=== PATIENT | female | born 1970 | race Caucasian/White ===

== ENCOUNTER 2020-08-29 10:18 | Outpatient (CLI) | payer MEDICARE, MEDICAID, SELFPAY ==
--- NOTE | 2020-08-29 10:31 | MM_ITS ---
WS: [id number] BILATERAL DIGITAL SCREENING MAMMOGRAPHY WITH CAD CLINICAL INFORMATION: SCREENING HISTORY: Screening mammogram. No current complaints. COMPARISON: None. TECHNIQUE: Bilateral CC and MLO views. FINDINGS: Scattered fibroglandular densities bilaterally. No suspicious focal mass, asymmetry, calcifications, or architectural distortion. No evidence of malignancy. Vascular calcification. MM/[id number] IMPRESSION: BI-RADS: 2-Benign FOLLOW UP: 1 Year Follow-up Recommend return to annual screening mammography.
== END 2020-08-29 10:19 | disposition home or self-care (01) ==
LOC: RADSHAW 10:22
PROVIDERS: PCP Family Medicine; Visit Provider Family Medicine
DX: Z12.31 Encounter for screening mammogram for malignant neoplasm of breast (principal)
CPT/HCPCS: 77067

== ENCOUNTER 2021-09-01 07:48 | Outpatient (CLI) | payer MEDICARE, MEDICAID, SELFPAY ==
--- NOTE | 2021-09-01 07:58 | MM_ITS ---
WS: [id number] BILATERAL SCREENING DIGITAL MAMMOGRAM WITH CAD HISTORY: SCREENING COMPARISON: 08/29/2020, 08/28/2019 Bilateral CC and MLO views submitted. Computer aided detection analyzed. Breast composition: There are scattered areas of fibroglandular density. No suspicious masses, microc alcifications or architectural distortion. Vascular calcification RIGHT breast. MM/[id number] IMPRESSION: BI-RADS: 2-Benign FOLLOW UP: 1 Year Follow-up
== END 2021-09-01 07:49 | disposition home or self-care (01) ==
PROVIDERS: PCP Family Medicine; Visit Provider Family Medicine
DX: Z12.31 Encounter for screening mammogram for malignant neoplasm of breast (principal)
CPT/HCPCS: 77067

== ENCOUNTER → 2022-03-07 08:23 | Outpatient (BNVA) | payer MEDICARE, MEDICAID, SELFPAY | PROVIDERS: PCP Family Medicine; Referring Provider Family Medicine; Visit Provider Nurse Practitioner | DX: G40.209 Localization-related (focal) (partial) symptomatic epilepsy and epileptic syndromes with complex partial seizures, not intractable, without status epilepticus (principal) | CPT/HCPCS: 99204 ==

== ENCOUNTER → 2022-04-12 13:03 | Outpatient (BNVA) | payer MEDICARE, MEDICAID, SELFPAY | PROVIDERS: PCP Family Medicine; Referring Provider Nurse Practitioner; Visit Provider Specialist | DX: G40.909 Epilepsy, unspecified, not intractable, without status epilepticus (principal) | CPT/HCPCS: 95816 ==

== ENCOUNTER → 2022-05-28 14:04 | Outpatient (BNVA) | payer MEDICARE, MEDICAID, SELFPAY | PROVIDERS: PCP Family Medicine; Visit Provider Nurse Practitioner | DX: G40.909 Epilepsy, unspecified, not intractable, without status epilepticus (principal) | CPT/HCPCS: 99213; 99214 ==

== ENCOUNTER → 2022-09-07 08:04 | Outpatient (BNVA) | payer MEDICARE, MEDICAID, SELFPAY | PROVIDERS: PCP Family Medicine; Visit Provider Nurse Practitioner | DX: G40.209 Localization-related (focal) (partial) symptomatic epilepsy and epileptic syndromes with complex partial seizures, not intractable, without status epilepticus (principal) | CPT/HCPCS: 99213 ==

== ENCOUNTER 2022-09-26 14:15 | Outpatient (CLI) | payer MEDICARE, MEDICAID, SELFPAY ==
--- NOTE | 2022-09-26 14:22 | MM_ITS ---
WS: [id number] BILATERAL 3D TOMOSYNTHESIS DIGITAL SCREENING MAMMOGRAPHY WITH CAD CLINICAL INFORMATION: SCREENING HISTORY: Screening mammogram. No current complaints. COMPARISON: September 01, 2021 TECHNIQUE: Bilateral CC and MLO views. FINDINGS: Scattered fibroglandular densities bilaterally. No suspicious focal mass, asymmetry, calcifications, or architectural distortion. No evidence of malignancy. Vascular calcification. A few incidental punc lenz calcifications. MM/[id number] IMPRESSION: BI-RADS: 2-Benign FOLLOW UP: 1 Year Follow-up Recommend return to annual screening mammography.
== END 2022-09-26 14:16 | disposition home or self-care (01) ==
LOC: RAD 14:18
PROVIDERS: PCP Family Medicine; Visit Provider Family Medicine
DX: Z12.31 Encounter for screening mammogram for malignant neoplasm of breast (principal)
CPT/HCPCS: 77063; 77067; 99213

== ENCOUNTER → 2023-08-28 14:00 | Outpatient (BNVA) | payer MEDICARE, MEDICAID, SELFPAY | PROVIDERS: PCP Family Medicine; Visit Provider Psychiatry & Neurology Neurology | DX: G40.219 Localization-related (focal) (partial) symptomatic epilepsy and epileptic syndromes with complex partial seizures, intractable, without status epilepticus (principal); R29.90 Unspecified symptoms and signs involving the nervous system | CPT/HCPCS: 99203 ==

== ENCOUNTER 2023-10-07 12:49 | Outpatient (CLI) | payer MEDICARE, MEDICAID, SELFPAY ==
--- NOTE | 2023-10-07 13:00 | MR_ITS ---
WS: [id number] MRI HEAD WITH CONTRAST TECHNIQUE: Sagittal T1, T2 axial, T2 axial FLAIR, axial susceptibility weighted imaging, axial diffus ion weighted images, and coronal T2 images were obtained. Pre and post-T1 axial and post T1 coronal i mages. ADC and FSPGR images. CLINICAL INFORMATION: G40.909 - Epilepsy, unspecified, not intractable, without... COMPARISON: None. FINDINGS: No evidence of restricted diffusion to suggest acute ischemia. Ventricular system and basilar cistern s are patent. No suspicious intracranial signal normalities. Normal veloz-white differentiation. Renee l posterior fossa. Normal vascular flow voids at the skull base. No extra-axial fluid collections. No evidence of mass or mass effect. Mild mucosal thickening in the paranasal sinuses. No hemosiderin on susceptibly weighted images. Normal optic chiasm and pituitary infundibulum. Tempor al lobes and hippocampal formations are normal in appearance. Paranasal sinuses and mastoid air cells are well aerated. No abnormal gadolinium enhancement. Normal dural venous sinuses. IMPRESSION: 1. No evidence of restricted diffusion to suggest acute ischemia. 2. No suspicious intracranial signal abnormalities. Normal veloz-white differentiation. 3. Temporal lobes and hippocampal formations are normal in appearance. No signal abnormalities in th e mesial temporal lobes. 4. No abnormal gadolinium enhancement. 5. No other suspicious findings.
== END 2023-10-07 12:50 | disposition home or self-care (01) ==
LOC: RAD 12:49
PROVIDERS: PCP Family Medicine; Visit Provider Psychiatry & Neurology Neurology
DX: G40.909 Epilepsy, unspecified, not intractable, without status epilepticus (principal)
CPT/HCPCS: 70553; A9577

== ENCOUNTER → 2023-11-27 13:30 | Outpatient (BNVA) | payer MEDICARE, MEDICAID, SELFPAY | PROVIDERS: PCP Family Medicine; Visit Provider Psychiatry & Neurology Neurology | DX: G40.219 Localization-related (focal) (partial) symptomatic epilepsy and epileptic syndromes with complex partial seizures, intractable, without status epilepticus (principal) | CPT/HCPCS: 99212 ==

== ENCOUNTER → 2024-02-11 15:26 | Outpatient (BNVA) | payer MEDICARE, MEDICAID, SELFPAY | PROVIDERS: PCP Family Medicine; Visit Provider Psychiatry & Neurology Neurology | DX: G40.219 Localization-related (focal) (partial) symptomatic epilepsy and epileptic syndromes with complex partial seizures, intractable, without status epilepticus (principal) | CPT/HCPCS: 99212 ==

== ENCOUNTER 2024-02-18 08:34 | Outpatient (CLI) | payer MEDICARE, MEDICAID, SELFPAY ==
[2024-02-18 09:31] LABS: Basophils % 0.5 %; Eosinophils # 0.3 10^3/uL (0.0-0.8); Eosinophils % 4.1 %; Hematocrit 40.8 % (36-47); Lymphocytes # 2.4 10^3/uL (0.8-4.8); Lymphocytes % 38.9 %; Mean Corpuscular HGB Conc 33.1 g/dL (30-55); Mean Corpuscular Hemoglobin 29.6 pg (27-33); Mean Corpuscular Volume 89.5 fl (85-98); Mean Platelet Volume 9.3 fL (7.4-10.4); Monocytes # 0.5 10^3/uL (0.2-0.9); Monocytes % 8.1 %; Neutrophils # 2.98 10^3/uL (1.8-7.7); Neutrophils % 48.2 %; Nucleated Red Blood Cells % 0 %; Platelet Count 261 10^3/cmm (157-399); Red Blood Count 4.56 10^6/uL (3.85-5.65); Red Cell Distribution Width 13.5 % (12.1-15.1); White Blood Count 6.17 10^3/uL (3.29-11.43)
[2024-02-18 09:48] LABS: Valproic Acid Level 69.9 ug/mL (50-100)
[2024-02-18 09:50] LABS: Alanine Aminotransferase 19 U/L (0-33); Albumin Level 4.1 g/dL (3.5-5.2); Alkaline Phosphatase 62 U/L (35-105); Anion Gap 14.4 (5-19); Aspartate Amino Transferase 19 U/L (0-32); Blood Urea Nitrogen 11 mg/dL (6-20); Calcium 9.6 mg/dL (8.5-10.5); Carbon Dioxide 26 mmol/L (22-29); Chloride 102 mmol/L (98-107); Globulin 2.8 g/dL (1.3-4.6); Glucose 111 mg/dL (65-115); Osmolality Calculated 286 mOsm/kg (285-295); Potassium 4.4 mmol/L (3.5-5.1); Sodium 138 mmol/L (136-145); Total Bilirubin 0.3 mg/dL (0.15-1.2); Total Protein 6.9 g/dL (6.6-8.7)
[2024-02-21 13:18] LABS: Levetiracetam Immunoassy 28.2 mcg/mL (6.0-46.0)
[2024-02-22 12:48] LABS: Lamotrigine (Lamictal) Level 14.4 mcg/mL (2.5-15.0)
== END 2024-02-18 08:35 | disposition home or self-care (01) ==
LOC: LAB 08:35
PROVIDERS: PCP Family Medicine; Visit Provider Psychiatry & Neurology Neurology
DX: G40.909 Epilepsy, unspecified, not intractable, without status epilepticus (principal)
CPT/HCPCS: 36415; 80053; 80164; 80175; 80177; 85025

== ENCOUNTER → 2024-02-21 12:06 | Outpatient (BNVA) | payer MEDICARE, MEDICAID, SELFPAY | PROVIDERS: PCP Family Medicine; Visit Provider Psychiatry & Neurology Neurology | DX: G40.219 Localization-related (focal) (partial) symptomatic epilepsy and epileptic syndromes with complex partial seizures, intractable, without status epilepticus (principal); G40.209 Localization-related (focal) (partial) symptomatic epilepsy and epileptic syndromes with complex partial seizures, not intractable, without status epilepticus; G40.909 Epilepsy, unspecified, not intractable, without status epilepticus | CPT/HCPCS: 95816 ==

== ENCOUNTER → 2024-05-25 13:30 | Outpatient (BNVA) | payer MEDICARE, MEDICAID, SELFPAY | PROVIDERS: PCP Family Medicine; Visit Provider Psychiatry & Neurology Neurology | DX: G40.219 Localization-related (focal) (partial) symptomatic epilepsy and epileptic syndromes with complex partial seizures, intractable, without status epilepticus (principal) | CPT/HCPCS: 99212 ==

== ENCOUNTER 2024-09-03 09:39 | Outpatient (CLI) | payer MEDICARE, MEDICAID, SELFPAY ==
--- NOTE | 2024-09-03 09:42 | MM_ITS ---
WS: [id number] BILATERAL SCREENING DIGITAL TOMOSYNTHESIS MAMMOGRAM WITH CAD HISTORY: SCREENING COMPARISON: 09/26/2022, 09/01/2021 Bilateral CC and MLO views with tomosynthesis and synthetic mammography submitted. Computer aided det ection analyzed. Breast composition: There are scattered areas of fibroglandular density. No suspicious masses, microc alcifications or architectural distortion. Scattered asymmetries and vascular calcifications are stab le. MM/MM scr tomosynthesis [id number] IMPRESSION: BI-RADS: 2 - Benign. FOLLOW UP: 1 Year Follow-up
== END 2024-09-03 09:40 | disposition home or self-care (01) ==
LOC: RAD 09:41
PROVIDERS: PCP Family Medicine; Visit Provider Family Medicine
DX: Z12.31 Encounter for screening mammogram for malignant neoplasm of breast (principal); R92.323 Mammographic fibroglandular density, bilateral breasts; N64.89 Other specified disorders of breast; R92.1 Mammographic calcification found on diagnostic imaging of breast
CPT/HCPCS: 77063; 77067

== ENCOUNTER 2025-01-18 20:16 | Emergency (ER) | payer MEDICARE, MEDICAID, SELFPAY ==
--- NOTE | 2025-01-18 20:17 | XRR_ITS ---
PROCEDURE INFORMATION: Exam: XR Chest Exam date and time: 01/18/2025 8:37 PM Age: 54 years old Clinical indication: Shortness of breath; Additional info: SOB TECHNIQUE: Imaging protocol: Radiologic exam of the chest. Views: 1 view. COMPARISON: No relevant prior studies available. FINDINGS: Lungs: Unremarkable. No consolidation or mass. Pleural spaces: Unremarkable. No pleural effusion. No pneumothorax. Heart/Mediastinum: Unremarkable. No cardiomegaly. Bones/joints: Unremarkable. XR/XR chest 1V portable [id number] IMPRESSION: No acute findings.
--- NOTE | 2025-01-18 20:18 | ECG_ITS ---
[facility] Test Date: 2025-01-18 Pat Name: Angelic Newsome Department: Room: Gender: Female Pediatric Physician: : 1970 Requested By: Ulysses Padron Order Number: [id number] Reading MD: Measurements Intervals [place] Rate: 102 P: 42 MD: 146 QRS: -2 QRSD: 85 T: -15 QT: 304 QTc: 396 Interpretive Statements SINUS TACHYCARDIA POSSIBLE LEFT ATRIAL ENLARGEMENT [-0.1mV P-WAVE IN V1/V2] POSSIBLE LEFT VENTRICULAR HYPERTROPHY [VOLTAGE CRITERIA PLUS LAE OR QRS WIDENING] [email or web address] [id number]
[2025-01-18 20:23] VITALS: BP 112/69; PULSE 104; TEMP 36.9; O2SAT 97
[2025-01-18 21:06] LABS: Basophils # 0.1 10^3/uL (0.0-0.1); Basophils % 0.4 %; Eosinophils % 0.1 %; Hematocrit 40.4 % (36-47); Lymphocytes # 2.5 10^3/uL (0.8-4.8); Lymphocytes % 17.8 %; Mean Corpuscular HGB Conc 32.9 g/dL (30-55); Mean Corpuscular Hemoglobin 29.7 pg (27-33); Mean Corpuscular Volume 90.2 fl (85-98); Mean Platelet Volume 9.1 fL (7.4-10.4); Monocytes # 0.8 10^3/uL (0.2-0.9); Monocytes % 5.7 %; Neutrophils # 10.77 10^3/uL (1.8-7.7); Neutrophils % 75.6 %; Nucleated Red Blood Cells % 0 %; Platelet Count 269 10^3/cmm (157-399); Red Blood Count 4.48 10^6/uL (3.85-5.65); White Blood Count 14.25 10^3/uL (3.29-11.43)
[2025-01-18 21:40] LABS: Alanine Aminotransferase 11 U/L (0-33); Alkaline Phosphatase 64 U/L (35-105); Anion Gap 14.9 (5-19); Aspartate Amino Transferase 11 U/L (0-32); Blood Urea Nitrogen 11 mg/dL (6-20); Calcium 9.7 mg/dL (8.5-10.5); Carbon Dioxide 28 mmol/L (22-29); Chloride 99 mmol/L (98-107); Creatinine Clr Calc Pharmacy 89.2184; Globulin 3.3 g/dL (1.3-4.6); Glomerular Filtration Rate 65.5 mL/min (90-130); Glucose 123 mg/dL (65-115); NT Pro B Type Natriuretic Pept 452 pg/mL (0-125); Osmolality Calculated 285 mOsm/kg (285-295); Potassium 4.9 mmol/L (3.5-5.1); Sodium 137 mmol/L (136-145); Total Bilirubin 0.3 mg/dL (0.15-1.2); Total Protein 7.3 g/dL (6.6-8.7)
[2025-01-19 00:02] LABS: Influenza A NEGATIVE (Negative); Influenza B NEGATIVE (Negative); Respiratory Syncytial Virus Ce NEGATIVE (Negative); SARS-CoV-2 PCR NEGATIVE (Negative)
--- NOTE | 2025-01-19 00:14 | W.ED.URI ---
HPI - URI/Sore Throat General: Chief Complaint: Upper Respiratory Infection Stated Complaint: O2 Low\Pulse High Time Seen by Provider: 01/18/25 22:55 Source: patient Mode of arrival: ambulatory Limitations: no limitations History of Present Illness: Patient is a 54-year-old female with a past medical history of seizure disorder, hypothyroid, anxiety, and seasonal allergies who presents to the emergency department complaining of headache for the past day. Also states she is having some generalized abdominal pain, cough, and congestion. She lives in a longterm states that multiple people have been sick around her recently. She has been taking Tylenol as well as medications for her allergies, states she has not gotten much relief. She is not reporting any chest pain or shortness of breath. She is not reporting that her cough is productive. No fever, nausea/vomiting/diarrhea, or any other symptoms reported at this time. Vitals within normal limits. MD elicited complaint: cough and nasal congestion Onset (ago): day(s) Consistency: constant Severity: mild Able to tolerate fluids by mouth: Yes Associated symptoms: Reports abdominal pain, headache(s) and nasal congestion; Deny chills, chest pain, diarrhea, ear or mastoid pain, fever(s), nausea or vomiting Related Data Home Medications ?Medication ?Instructions ?Recorded ?Confirmed atorvastatin 10 mg tablet 10 mg PO DAILY 01/26/22 05/25/24 bismuth subsalicylate 262 mg/15 mL 524 mg PO Q30M PRN 01/26/22 05/25/24 oral suspension (Pepto-Bismol) calcium carbonate (Tums) 200 mg PO BID PRN 01/26/22 05/25/24 docusate sodium 100 mg capsule 100 mg PO BID 01/26/22 05/25/24 (Colace) duloxetine 60 mg capsule,delayed 60 mg PO BID 01/26/22 05/25/24 release fluticasone propionate 50 1 spray intranasal DAILY 01/26/22 05/25/24 mcg/actuation nasal spray,suspension (Allergy Relief (fluticasone)) hydroxyzine HCl 25 mg tablet 25 mg PO BID PRN 01/26/22 05/25/24 levothyroxine 75 mcg capsule 75 mcg PO DAILY 01/26/22 05/25/24 levothyroxine 88 mcg capsule 88 mcg PO DAILY 01/26/22 05/25/24 lorazepam 1 mg tablet 1 mg PO DAILY PRN 01/26/22 05/25/24 meclizine 25 mg tablet 25 mg PO DAILY PRN 01/26/22 05/25/24 metformin 500 mg tablet 500 mg PO DAILY 01/26/22 05/25/24 montelukast 10 mg tablet 10 mg PO DAILY 01/26/22 05/25/24 ondansetron 4 mg disintegrating 4 mg PO Q8H 01/26/22 05/25/24 tablet pantoprazole 40 mg tablet,delayed 40 mg PO DAILY 01/26/22 05/25/24 release (Protonix) prenat.vits,sanjeev,vkm-qook-xbdku 1 tab PO DAILY 01/26/22 05/25/24 sennosides 8.6 mg tablet (senna) 8.6 mg PO DAILY 01/26/22 05/25/24 sodium chloride 0.65 % nasal spray 1 spray intranasal BID PRN 01/26/22 05/25/24 aerosol (Culloden Saline) acetaminophen 500 mg tablet 500 mg PO Q6H PRN 03/07/22 05/25/24 (Tylenol Extra Strength) guaifenesin 600 mg tablet, 600 mg PO BID PRN 02/14/23 05/25/24 extended release 12 hr (Mucinex) propranolol 20 mg tablet 20 mg PO BID 02/14/23 05/25/24 Previous Rx's ?Medication ?Instructions ?Recorded estradiol 1 mg tablet See Rx Instructions .Route 02/19/24 .COMPLEX #135 tabs lamotrigine 150 mg tablet See Rx Instructions .Route 08/18/24 .COMPLEX #60 tabs levetiracetam 1,000 mg tablet See Rx Instructions .Route 09/28/24 .COMPLEX #90 tabs divalproex 500 mg tablet,extended See Rx Instructions .Route 11/24/24 release 24 hr .COMPLEX #90 tabs Allergies Allergy/AdvReac Type Severity Reaction Status Date / Time latex Allergy skin Verified 01/18/25 20:37 irritation Penicillins Allergy anaphylaxis Verified 01/18/25 20:37 Review of Systems General: Reports: 10 or more systems reviewed and unremarkable except in HPI and below Const: Denies: fever(s), chills or fatigue Eyes: Denies: change in vision ENMT: Reports: nasal congestion; Denies: throat pain, ear or mastoid pain or nasal discharge Card: Denies: chest pain, palpitations, swelling of feet/ankles or lightheadedness Resp: Reports: non-productive cough; Denies: dyspnea, productive cough or wheezing GI: Reports: abdominal pain; Denies: nausea, vomiting, diarrhea or constipation : Denies: flank pain, difficulty voiding, dysuria or urinary frequency Musc: Denies: neck pain, back pain or joint pain Skin/Breast: Denies: rash Neuro: Reports: headache(s); Denies: numbness in extremities or weakness in extremities PFSH ED PFSH: Medical History Complex partial epilepsy Borderline diabetes Constipation Depression Hypercholesteremia Chronic GERD Allergies Anxiety Seizure disorder on medication and managed by Dr. Mondragon. Has not seen a neurologist in several years. Last seizure 2020. Surgical menopause Hypothyroid No pertinent past medical history neghx:dm,thyroid,dvt/pe PCP: Dr. Mondragon Hypertension not currently on any medications- stopped her medication mid 2020. Surgical History Hx of tonsillectomy as a child Hx laparoscopic cholecystectomy Laparoscopic procedure in her mid 30s Hx of hysterectomy with oophorectomy (~06/24/12) Total abdominal hysterectomy, bilateral salpingo-oophorectomy performed on 06/24/[address] Hossein Santos at [facility] [place] for menorrhagia, dysmenorrhea and endometriosis. Bilateral ovaries removed secondary to the endometriosis. Family History Mother Heart disease Hypercholesteremia Hypertension Father Heart disease Hypercholesteremia Hypertension Sister Hypertension Grandfather Stroke Paternal Denies family history of Colon cancer Ovarian cancer Diabetes Breast cancer Uterine cancer Thyroid disease Social History Smoking and tobacco/nicotine status: never used tobacco/nicotine Physical Exam Const: COMMON NORMALS: no acute distress and healthy appearing GENERAL APPEARANCE: cooperative, comfortable and well developed HENMT: COMMON NORMALS: normocephalic, atraumatic, hearing grossly normal bilaterally, external ears normal, EAC's normal, TM's normal bilaterally, Normal external nose present and Normal nasal mucous membranes and turbinates present HEAD & SCALP: normal to inspection, normocephalic and atraumatic FACE & SINUS: normal facial exam and sinuses nontender NOSE: Normal external nose present, Normal nares present, No nasal polyps present and Normal nasal mucous membranes and turbinates present EXTERNAL EAR: Yes external ears normal EXTERNAL AUDITORY CANAL: EAC's normal TYMPANIC MEMBRANE: TM's normal bilaterally MOUTH: Normal oral and palatal mucosa present THROAT: posterior oropharynx normal and tonsils normal Eye: COMMON NORMALS: EOMs intact bilaterally, conjunctivae normal and normal visual fragoso by confrontation GENERAL EYE: appearance normal, both eyes and all related structures CONJUNCTIVA: Yes conjunctivae normal Neck/C-Spine: COMMON NORMALS: full ROM, no lymphadenopathy, supple and no meningeal signs GENERAL: Yes normal visual inspection Chest: COMMONS NORMALS: normal inspection of the chest Resp: COMMON NORMALS: normal respiratory effort and clear to auscultation bilaterally EFFORT & INSPECTION: Yes able to speak in complete sentences AUSCULTATION: clear to auscultation bilaterally Cardio: COMMON NORMALS: regular rate, regular rhythm, S1 normal heart sound present and S2 normal heart sound present RATE: regular rate RHYTHM: regular rhythm HEART SOUNDS: S1 normal heart sound present, S2 normal heart sound present, no gallops, no murmurs and no rubs GI: COMMON NORMALS: Soft to palpation and No hepatosplenomegaly present INSPECTION: Yes normal to inspection PALPATION: Yes Soft to palpation and Yes No hepatosplenomegaly present Extremity: COMMON NORMALS: normal to inspection, full ROM and capillary refill normal Neuro: MENINGEAL SIGNS: Yes no meningeal signs Skin: COMMON NORMALS: no rashes or lesions noted GENERAL SKIN EXAM: no rashes or lesions noted Course Vital Signs: Vital signs: Vital Signs Temperature 98.4 F 01/18/25 20:23 Pulse Rate 104 H 01/18/25 20:23 Blood Pressure 112/69 01/18/25 20:23 Pulse Oximetry 97 01/18/25 20:23 Oxygen Delivery Me thod Room Air 01/18/25 20:23 MDM - URI/Sore Throat Medical Decision Making Patient presented with upper respiratory symptoms, notable contact exposure to sick patrons at longterm. Physical exam was unremarkable. Her vitals have been within normal limits. Lab work was unremarkable, normal chest x-ray. Swab for COVID flu and RSV was negative. I do suspect either viral upper respiratory infection or seasonal allergies will have her begin treating conservatively at home as symptoms just began yesterday and she did not report taking anything other than Tylenol. Patient and longterm member comfortable with this plan and they verbalized understanding to return precautions. Lab Data 01/18/25 21:01 01/18/25 21:01 Radiology Impressions Chest X-Ray 01/18/25 20:17 IMPRESSION: No acute findings. Laboratory Results WBC 14.25 10^3/uL (3.29-11.43) H 01/18/25 21:01 RBC 4.48 10^6/uL (3.85-5.65) 01/18/25 21:01 Hgb 13.30 g/dL (11.27-16.99) 01/18/25 21: Hct 40.4 % (36-47) 01/18/25 21: MCV 90.2 fl (85-98) 01/18/25 21: MCH 29.7 pg (27-33) 01/18/25 21:01 MCHC 32.9 g/dL (30-55) 01/18/25 21:01 RDW 14.0 % (12.1-15.1) 01/18/25 21: Plt Count 269 10^3/cmm (157-399) 01/18/25 21:01 MPV 9.1 fL (7.4-10.4) 01/18/25 21:01 Neut % (Auto) 75.6 % 01/18/25 21: Lymph % (Auto) 17.8 % 01/18/25 21:01 [place] % (Auto) 5.7 % 01/18/25 21:01 Eos % (Auto) 0.1 % 01/18/25 21:01 Baso % (Auto) 0.4 % 01/18/25 21:01 Neut # (Auto) 10.77 10^3/uL (1.8-7.7) H 01/18/25 21:01 Lymph # (Auto) 2.5 10^3/uL (0.8-4.8) 01/18/25 21:01 [place] # (Auto) 0.8 10^3/uL (0.2-0.9) 01/18/25 21:01 Eos # (Auto) 0.0 10^3/uL (0.0-0.8) 01/18/25 21:01 Baso # (Auto) 0.1 10^3/uL (0.0-0.1) 01/18/25 21:01 Nucleated RBC % (auto) 0 % 01/18/25 21:01 Nucleated RBCs # 0.0 /100WBC 01/18/25 21:01 Sodium 137 mmol/L (136-145) 01/18/25 21:01 Potassium 4.9 mmol/L (3.5-5.1) 01/18/25 21:01 Chloride 99 mmol/L (98-107) 01/18/25 21:01 Carbon Dioxide 28 mmol/L (22-29) 01/18/25 21: Anion Gap 14.9 (5-19) 01/18/25 21:01 BUN 11 mg/dL (6-20) 01/18/25 21:01 Creatinine 0.9 mg/dL (0.5-0.9) 01/18/25 21:01 GFR Calculation 65.5 mL/min (90-130) L 01/18/25 21:01 Glucose 123 mg/dL (65-115) H 01/18/25 21:01 Calculated Osmolality 285 mOsm/kg (285-295) 01/18/25 21:01 Calcium 9.7 mg/dL (8.5-10.5) 01/18/25 21:01 Total Bilirubin 0.3 mg/dL (0.15-1.2) 01/18/25 21:01 AST 11 U/L (0-32) 01/18/25 21:01 ALT 11 U/L (0-33) 01/18/25 21:01 Alkaline Phosphatase 64 U/L (35-105) 01/18/25 21:01 NT-Pro-B Natriuret Pep 452 pg/mL (0-125) H 01/18/25 21:01 Total Protein 7.3 g/dL (6.6-8.7) 01/18/25 21:01 Albumin 4.0 g/dL (3.5-5.2) 01/18/25 21: Globulin 3.3 g/dL (1.3-4.6) 01/18/25 21:01 Influenza A (PCR) Negative (Negative) 01/18/25 23:16 Influenza Type B (PCR) Negative (Negative) 01/18/25 23:16 RSV (PCR) Negative (Negative) 01/18/25 23:16 SARS-CoV-2 (PCR) Negative (Negative) 01/18/25 23:16 All radiology interpretation(s) finalized by discharge Discharge Plan Discharge Patient Disposition: Home Clinical Impression: Upper respiratory infection Condition: Stable Prescriptions: No Action pantoprazole [Protonix] 40 mg tablet,delayed release (DR/EC) 40 mg PO DAILY metformin 500 mg tablet 500 mg PO DAILY prenat.vits,sanjeev,ywf-stjo-gkpde Tablet 1 tab PO DAILY fluticasone propionate [Allergy Relief (fluticasone)] 50 mcg/actuation spray,suspension 1 spray intranasal DAILY Rx Instructions: administer into each nostril duloxetine 60 mg capsule,delayed release(DR/EC) 60 mg PO BID levothyroxine 75 mcg capsule 75 mcg PO DAILY levothyroxine 88 mcg capsule 88 mcg PO DAILY sennosides [senna] 8.6 mg tablet 8.6 mg PO DAILY atorvastatin 10 mg tablet 10 mg PO DAILY docusate sodium [Colace] 100 mg capsule 100 mg PO BID calcium carbonate [Tums] 200 mg calcium (500 mg) tablet,chewable 200 mg PO BID PRN bismuth subsalicylate [Pepto-Bismol] 262 mg/15 mL suspension 524 mg PO Q30M PRN Rx Instructions: do not exceed 8 doses in a 24 hour period montelukast 10 mg tablet 10 mg PO DAILY meclizine 25 mg tablet 25 mg PO DAILY PRN hydroxyzine HCl 25 mg tablet 25 mg PO BID PRN lorazepam 1 mg tablet 1 mg PO DAILY PRN sodium chloride [Culloden Saline] 0.65 % aerosol,spray 1 spray intranasal BID PRN ondansetron 4 mg tablet,disintegrating 4 mg PO Q8H propranolol 20 mg tablet 20 mg PO BID guaifenesin [Mucinex] 600 mg tablet extended release 12hr 600 mg PO BID PRN estradiol 1 mg tablet See Rx Instructions .ROUTE .COMPLEX Qty: 135 3RF Dose Instruction: TAKE 1 AND 1/2 TABLETS BY MOUTH EVERY DAY Rx Instructions: TAKE 1 AND 1/2 TABLETS BY MOUTH EVERY DAY acetaminophen [Tylenol Extra Strength] 500 mg tablet 500 mg PO Q6H PRN lamotrigine 150 mg tablet See Rx Instructions .ROUTE .COMPLEX Qty: 60 6RF Dose Instruction: TAKE ONE TABLET BY MOUTH TWICE DAILY Rx Instructions: TAKE ONE TABLET BY MOUTH TWICE DAILY levetiracetam 1,000 mg tablet See Rx Instructions .ROUTE .COMPLEX Qty: 90 3RF Dose Instruction: TAKE ONE AND ONE HALF TABLETS BY MOUTH TWICE DAILY Rx Instructions: TAKE ONE AND ONE HALF TABLETS BY MOUTH TWICE DAILY divalproex 500 mg tablet extended release 24 hr See Rx Instructions .ROUTE .COMPLEX Qty: 90 1RF Dose Instruction: TAKE ONE TABLET BY MOUTH THREE TIMES DAILY Rx Instructions: TAKE ONE TABLET BY MOUTH THREE TIMES DAILY Discharge Orders: Discharge ED (Routine); Ordered 01/19/25 Ordered By: Chad Lin Referrals: Javon Mondragon MD [Primary Care Provider] - Patient Instructions: Upper Respiratory Infection (ED) Activity Restrictions/Additional Instructions: [id number] medications as we discussed. Drink plenty of fluids. Follow-up with primary care as needed. Return with any new or worsening. Print Language: Kazakh Coding Level of Care Code ED Music Industry Intern for Phu Graham
[2025-01-19 00:21] VITALS: BP 109/69; PULSE 95; O2SAT 98
== END 2025-01-19 00:22 | disposition home or self-care (01) ==
PROVIDERS: Emergency Medicine; Emergency Provider Physician Assistant; PCP Family Medicine
DX: J06.9 Acute upper respiratory infection, unspecified (principal); Z11.52 Encounter for screening for COVID-19; I10 Essential (primary) hypertension
CPT/HCPCS: 36415; 71045; 80053; 83880; 85025; 87637; 93005; 99285

== ENCOUNTER 2025-03-12 21:37 | Emergency (ER) | payer MEDICARE, MEDICAID, SELFPAY ==
[2025-03-12 21:39] VITALS: BP 135/75; PULSE 101; RESP 16; TEMP 37.1; O2SAT 98; BMI 30.9
--- NOTE | 2025-03-12 21:46 | PC.NURSE ---
Per patient, guardian is mother Kinjal Shah. Patient's sister and preferred contact is Buck Garcia, to be reached at [phone]
--- NOTE | 2025-03-12 22:03 | CTR_ITS ---
PROCEDURE INFORMATION: Exam: CT Head Without Contrast Exam date and time: 03/12/2025 10:26 PM Age: 54 years old Clinical indication: EMS arrival for seizure. C/O [place]. History of epilepsy. ; Additional info: Seizure, status epilepticus, headache TECHNIQUE: Imaging protocol: Computed tomography of the head without contrast. Radiation optimization: All CT scans at this facility use at least one of these dose optimization techniques: automated exposure control; mA and/or kV adjustment per patient size (includes targeted exams where dose is matched to clinical indication); or iterative reconstruction. COMPARISON: MR head wo/w con [id number] 10/07/2023 1:31 PM RADIATION DOSE METRICS: Total DLP (mGy-cm): 1075.18 FINDINGS: Brain: No focal hemorrhage or midline shift is identified. Cerebral ventricles: No ventriculomegaly or evidence of acute hydrocephalus. Paranasal sinuses: The partially assessed sinuses are grossly clear. Mastoid air cells: Visualized mastoid air cells are well aerated. Bones: Unremarkable. No acute fracture. Hyperostosis frontalis internus. Soft tissues: Unremarkable. CT/CT head wo con* [id number] IMPRESSION: No acute intracranial abnormality.
[2025-03-12 22:14] LABS: Basophils % 0.4 %; Eosinophils % 0.3 %; Lymphocytes # 2.8 10^3/uL (0.8-4.8); Lymphocytes % 41.2 %; Mean Corpuscular HGB Conc 31.5 g/dL (30-55); Mean Platelet Volume 9.4 fL (7.4-10.4); Monocytes # 0.7 10^3/uL (0.2-0.9); Neutrophils # 3.22 10^3/uL (1.8-7.7); Neutrophils % 47.8 %; Nucleated Red Blood Cells % 0 %; Platelet Count 254 10^3/cmm (157-399); Red Blood Count 4.24 10^6/uL (3.85-5.65); White Blood Count 6.73 10^3/uL (3.29-11.43)
[2025-03-12 22:35] LABS: Valproic Acid Level 46.7 ug/mL (50-100)
[2025-03-12 22:39] LABS: Alanine Aminotransferase 14 U/L (0-33); Alkaline Phosphatase 59 U/L (35-105); Anion Gap 13.2 (5-19); Aspartate Amino Transferase 12 U/L (0-32); Blood Urea Nitrogen 9 mg/dL (6-20); Calcium 8.9 mg/dL (8.5-10.5); Carbon Dioxide 29 mmol/L (22-29); Chloride 101 mmol/L (98-107); Globulin 2.2 g/dL (1.3-4.6); Glomerular Filtration Rate 104.6 mL/min (90-130); Glucose 118 mg/dL (65-115); Osmolality Calculated 288 mOsm/kg (285-295); Potassium 4.2 mmol/L (3.5-5.1); Sodium 139 mmol/L (136-145); Total Bilirubin 0.2 mg/dL (0.15-1.2); Total Protein 6.2 g/dL (6.6-8.7)
--- NOTE | 2025-03-12 23:11 | W.ED.SEIZURE ---
HPI - Seizure General: Chief Complaint: Seizure Stated Complaint: SEIZURE Time Seen by Provider: 03/12/25 21:46 Source: patient Mode of arrival: EMS Limitations: no limitations History of Present Illness: HPI Narrative: Patient is a 54-year-old female with past medical history of complex partial epilepsy and further seizure disorder who presents by ambulance for reported absence seizure earlier today. States she has a history of petit mall seizures and had 1 that lasted 5 minutes per lamp [facility] staff where she is from. She states that she was told to come to the ED for evaluation by her neurologist if she ever has seizures, and she is set to see neurologist in March. She does not report any fevers or other symptoms of illness. Reporting a minor headache at this time, vitals unremarkable and there is no focal neurological deficit appreciated at this time. Medications appears that she is on Depakote and Keppra. Also lorazepam. MD complaint: possible seizure Onset (ago): hour(s) Description of Episode: other (Petit mal) Duration of episode: 5 -: minutes(s) Witnessed: Yes - by Other Seizure History: Yes Place: [facility] Associated symptoms: Deny chest pain, chills or fever(s) Related Data Home Medications ?Medication ?Instructions ?Recorded ?Confirmed atorvastatin 10 mg tablet 10 mg PO DAILY 01/26/22 02/23/25 bismuth subsalicylate 262 mg/15 mL 524 mg PO Q30M PRN 01/26/22 02/23/25 oral suspension (Pepto-Bismol) calcium carbonate (Tums) 200 mg PO BID PRN 01/26/22 02/23/25 docusate sodium 100 mg capsule 100 mg PO BID 01/26/22 02/23/25 (Colace) duloxetine 60 mg capsule,delayed 60 mg PO BID 01/26/22 02/23/25 release fluticasone propionate 50 1 spray intranasal DAILY 01/26/22 02/23/25 mcg/actuation nasal spray,suspension (Allergy Relief (fluticasone)) hydroxyzine HCl 25 mg tablet 25 mg PO BID PRN 01/26/22 02/23/25 levothyroxine 75 mcg capsule 75 mcg PO DAILY 01/26/22 02/23/25 levothyroxine 88 mcg capsule 88 mcg PO DAILY 01/26/22 02/23/25 lorazepam 1 mg tablet 1 mg PO DAILY PRN 01/26/22 02/23/25 meclizine 25 mg tablet 25 mg PO DAILY PRN 01/26/22 02/23/25 metformin 500 mg tablet 500 mg PO DAILY 01/26/22 02/23/25 montelukast 10 mg tablet 10 mg PO DAILY 01/26/22 02/23/25 ondansetron 4 mg disintegrating 4 mg PO Q8H 01/26/22 02/23/25 tablet pantoprazole 40 mg tablet,delayed 40 mg PO DAILY 01/26/22 02/23/25 release (Protonix) prenat.vits,sanjeev,yxh-scjw-ttgfz 1 tab PO DAILY 01/26/22 02/23/25 sennosides 8.6 mg tablet (senna) 8.6 mg PO DAILY 01/26/22 02/23/25 sodium chloride 0.65 % nasal spray 1 spray intranasal BID PRN 01/26/22 02/23/25 aerosol (Lyons Saline) acetaminophen 500 mg tablet 500 mg PO Q6H PRN 03/07/22 02/23/25 (Tylenol Extra Strength) guaifenesin 600 mg tablet, 600 mg PO BID PRN 02/14/23 02/23/25 extended release 12 hr (Mucinex) propranolol 20 mg tablet 20 mg PO BID 02/14/23 02/23/25 Previous Rx's ?Medication ?Instructions ?Recorded lamotrigine 150 mg tablet See Rx Instructions .Route 08/18/24 .COMPLEX #60 tabs levetiracetam 1,000 mg tablet See Rx Instructions .Route 01/27/25 .COMPLEX #90 tabs divalproex 500 mg tablet,extended 500 mg PO TID #90 tabs 02/04/25 release 24 hr estradiol 0.01% (0.1 mg/gram) 1 g vaginal .twice weekly #42.5 02/23/25 vaginal cream grams estradiol 1 mg tablet See Rx Instructions .Route 02/23/25 .COMPLEX #135 tabs cefdinir 300 mg capsule 300 mg PO BID 10 days #20 caps 03/13/25 Allergies Allergy/AdvReac Type Severity Reaction Status Date / Time latex Allergy skin Verified 02/23/25 15:25 irritation Penicillins Allergy anaphylaxis Verified 02/23/25 15:25 Review of Systems General: Reports: 10 or more systems reviewed and unremarkable except in HPI and below Const: Denies: fever(s), chills or fatigue Eyes: Denies: change in vision ENMT: Denies: throat pain, ear or mastoid pain or nasal discharge Card: Denies: chest pain, palpitations, swelling of feet/ankles or lightheadedness Resp: Denies: dyspnea, productive cough or wheezing GI: Denies: abdominal pain, nausea, vomiting, diarrhea or constipation : Denies: flank pain, difficulty voiding, dysuria or urinary frequency Musc: Denies: neck pain, back pain or joint pain Skin/Breast: Denies: rash Neuro: Reports: headache(s) and seizure-like activity; Denies: numbness in extremities, weakness in extremities, dizziness or Slurred speech present PFSH ED PFSH: Medical History Complex partial epilepsy Borderline diabetes Constipation Depression Hypercholesteremia Chronic GERD Allergies Anxiety Seizure disorder on medication and managed by Dr. Mondragon. Has not seen a neurologist in several years. Last seizure 2020. Surgical menopause Hypothyroid No pertinent past medical history neghx:dm,thyroid,dvt/pe PCP: Dr. Mondragon Hypertension not currently on any medications- stopped her medication mid 2020. Surgical History Hx of tonsillectomy as a child Hx laparoscopic cholecystectomy Laparoscopic procedure in her mid 30s Hx of hysterectomy with oophorectomy (~06/24/12) Total abdominal hysterectomy, bilateral salpingo-oophorectomy performed on 06/24/[address] Hossein Santos at [facility] for menorrhagia, dysmenorrhea and endometriosis. Bilateral ovaries removed secondary to the endometriosis. Family History Mother Heart disease Hypercholesteremia Hypertension Father Heart disease Hypercholesteremia Hypertension Sister Hypertension Grandfather Stroke Paternal Denies family history of Colon cancer Ovarian cancer Diabetes Breast cancer Uterine cancer Thyroid disease Social History Smoking and tobacco/nicotine status: never used tobacco/nicotine Physical Exam Const: COMMON NORMALS: no acute distress, patient oriented x3 and no limitations GENERAL APPEARANCE: cooperative, comfortable and well developed ORIENTATION/CONSCIOUSNESS: Yes awake, Yes oriented to person, Yes oriented to place and Yes oriented to time HENMT: COMMON NORMALS: normocephalic, atraumatic and hearing grossly normal bilaterally HEAD & SCALP: normocephalic and atraumatic Eye: COMMON NORMALS: EOMs intact bilaterally and conjunctivae normal CONJUNCTIVA: Yes conjunctivae normal OTHER: Chronic right eye malalignment Neck/C-Spine: COMMON NORMALS: full ROM, supple and no JVD Resp: COMMON NORMALS: normal respiratory effort, No retractions, No use of accessory muscles and clear to auscultation bilaterally AUSCULTATION: clear to auscultation bilaterally Cardio: COMMON NORMALS: no JVD, regular rate, regular rhythm, No clicks present (Cardio), No murmurs present (Cardio) and No rub (Cardio) RATE: regular rate RHYTHM: regular rhythm GI: COMMON NORMALS: Normal to inspection, nondistended, normoactive bowel sounds present, Soft to palpation and non-tender AUSCULTATION: Yes normoactive bowel sounds PALPATION: Yes Soft to palpation RECTAL EXAM: deferred Extremity: COMMON NORMALS: normal to inspection, full ROM and capillary refill normal Neuro: COMMON NORMALS: patient oriented x3, CN's II-XII intact bilaterally, moves all extremities, no focal motor deficits and no sensory deficits noted SENSORIUM/ORIENTATION: Yes oriented to person, Yes oriented to place and Yes oriented to time Skin: COMMON NORMALS: no rashes or lesions noted GENERAL SKIN EXAM: no rashes or lesions noted Course Vital Signs: Vital signs: Vital Signs Temperature 98.8 F 03/12/25 21:39 Pulse Rate 101 H 03/12/25 21:39 Respiratory Rate 16 03/12/25 21:39 Blood Pressure 135/75 03/12/25 21:39 Pulse Oximetry 98 03/12/25 21:39 Oxygen Delivery Me thod Room Air 03/12/25 21:39 MDM - Seizure MDM Narrative Medical decision making narrative: Patient presented by ambulance for reported petit mal seizure, of which she has a history of. Sees Dr. Gabriel. Neurologically intact on physical exam. Head CT was normal, labs unremarkable, valproic acid level was minimally subtherapeutic I do not feel this is because for the reported seizure today, of which was noted to be status epilepticus that she was reporting that staff told her it was greater than 5 minutes. Urinalysis did show signs of infection, and further history gathering reveals that patient's dad recently and she has been under significant more amount of stress. Either UTI or stress could have precipitated this reported event, she has been stable here and vitals have been normal. I informed the patient that she needs to call Dr. Gabriel's office on Saturday to discuss her ED visit, and to see if they want to expedite her upcoming evaluation to discuss medications and for further evaluation. I believe patient is stable for discharge at this time and we will start her on cefdinir for UTI. Discussed this plan with the patient and sister in the room, both of which agree with the plan and general return precautions were given. Lab Data 03/12/25 22:09 03/12/25 22:09 Labs: Radiology Impressions Head CT 03/12/25 22:03 IMPRESSION: No acute intracranial abnormality. Laboratory Results WBC 6.73 10^3/uL (3.29-11.43) 03/12/25 22:09 RBC 4.24 10^6/uL (3.85-5.65) 03/12/25 22:09 Hgb 12.30 g/dL (11.27-16.99) 03/12/25 22:09 Hct 39.0 % (36-47) 03/12/25 22:09 MCV 92.0 fl (85-98) 03/12/25 22:09 MCH 29.0 pg (27-33) 03/12/25 22:09 MCHC 31.5 g/dL (30-55) 03/12/25 22:09 RDW 14.0 % (12.1-15.1) 03/12/25 22:09 Plt Count 254 10^3/cmm (157-399) 03/12/25 22:09 MPV 9.4 fL (7.4-10.4) 03/12/25 22:09 Neut % (Auto) 47.8 % 03/12/25 22:09 Lymph % (Auto) 41.2 % 03/12/25 22:09 [place] % (Auto) 10.0 % 03/12/25 22:09 Eos % (Auto) 0.3 % 03/12/25 22:09 Baso % (Auto) 0.4 % 03/12/25 22:09 Neut # (Auto) 3.22 10^3/uL (1.8-7.7) 03/12/25 22:09 Lymph # (Auto) 2.8 10^3/uL (0.8-4.8) 03/12/25 22:09 [place] # (Auto) 0.7 10^3/uL (0.2-0.9) 03/12/25 22:09 Eos # (Auto) 0.0 10^3/uL (0.0-0.8) 03/12/25 22:09 Baso # (Auto) 0.0 10^3/uL (0.0-0.1) 03/12/25 22:09 Nucleated RBC % (auto) 0 % 03/12/25 22:09 Nucleated RBCs # 0.0 /100WBC 03/12/25 22:09 Sodium 139 mmol/L (136-145) 03/12/25 22:09 Potassium 4.2 mmol/L (3.5-5.1) 03/12/25 22:09 Chloride 101 mmol/L (98-107) 03/12/25 22:09 Carbon Dioxide 29 mmol/L (22-29) 03/12/25 22:09 Anion Gap 13.2 (5-19) 03/12/25 22:09 BUN 9 mg/dL (6-20) 03/12/25 22:09 Creatinine 0.6 mg/dL (0.5-0.9) 03/12/25 22:09 GFR Calculation 104.6 mL/min (90-130) 03/12/25 22:09 Glucose 118 mg/dL (65-115) H 03/12/25 22:09 Calculated Osmolality 288 mOsm/kg (285-295) 03/12/25 22:09 Calcium 8.9 mg/dL (8.5-10.5) 03/12/25 22:09 Total Bilirubin 0.2 mg/dL (0.15-1.2) 03/12/25 22:09 AST 12 U/L (0-32) 03/12/25 22:09 ALT 14 U/L (0-33) 03/12/25 22:09 Alkaline Phosphatase 59 U/L (35-105) 03/12/25 22:09 Total Protein 6.2 g/dL (6.6-8.7) L 03/12/25 22:09 Albumin 4.0 g/dL (3.5-5.2) 03/12/25 22:09 Globulin 2.2 g/dL (1.3-4.6) 03/12/25 22:09 Urine Color Yellow (Yellow) 03/12/25 23:32 Urine Appearance Cloudy (CLEAR) A 03/12/25 23: Urine pH 8.0 (5-7) A 03/12/25 23:32 Ur Specific [place] 1.024 (1.005-1.030) 03/12/25 23:32 Urine Protein Trace (Negative) A 03/12/25 23:32 Urine Glucose (UA) Negative (Normal) 03/12/25 23: Urine Ketones Trace (Negative) 03/12/25 23:32 Urine Blood Negative (Negative) 03/12/25 23:32 Urine Nitrate Negative (Negative) 03/12/25: Urine Bilirubin Negative (Negative) 03/12/25 23: Urine Urobilinogen 1.0 mg/dL (Negative) 03/12/25 23:32 Ur Leukocyte Esterase 1+ (Negative) A 03/12/25 23:32 Urine RBC 0-2 /hpf (0-2) 03/12/25 23:32 Urine WBC 11-20 /hpf (0-5) H 03/12/25 23:32 Ur Squamous Epith Cells 6-10 /hpf (0-5) 03/12/25 23:32 Amorphous Sediment Not Reportable 03/12/25 23:32 Urine Bacteria 3+ /hpf (NONE) H 03/12/25 23:32 Hyaline Casts 0.81 /lpf 03/12/25 23:32 Valproic Acid 46.7 ug/mL (50-100) L 03/12/25 22:09 All radiology interpretation(s) finalized by discharge Discharge Plan Discharge Patient Disposition: Home Clinical Impression: Seizure disorder Urinary tract infection Qualifiers: Urinary tract infection type: acute cystitis Hematuria presence: without hematuria Qualified Code(s): N30.00 - Acute cystitis without hematuria Condition: Stable Prescriptions: New cefdinir 300 mg capsule 300 mg PO BID 10 Days Qty: 20 0RF No Action pantoprazole [Protonix] 40 mg tablet,delayed release (DR/EC) 40 mg PO DAILY metformin 500 mg tablet 500 mg PO DAILY prenat.vits,sanjeev,ndo-[id number] Tablet 1 tab PO DAILY fluticasone propionate [Allergy Relief (fluticasone)] 50 mcg/actuation spray,suspension 1 spray intranasal DAILY Rx Instructions: administer into each nostril duloxetine 60 mg capsule,delayed release(DR/EC) 60 mg PO BID levothyroxine 75 mcg capsule 75 mcg PO DAILY levothyroxine 88 mcg capsule 88 mcg PO DAILY sennosides [senna] 8.6 mg tablet 8.6 mg PO DAILY atorvastatin 10 mg tablet 10 mg PO DAILY docusate sodium [Colace] 100 mg capsule 100 mg PO BID calcium carbonate [Tums] 200 mg calcium (500 mg) tablet,chewable 200 mg PO BID PRN bismuth subsalicylate [Pepto-Bismol] 262 mg/15 mL suspension 524 mg PO Q30M PRN Rx Instructions: do not exceed 8 doses in a 24 hour period montelukast 10 mg tablet 10 mg PO DAILY meclizine 25 mg tablet 25 mg PO DAILY PRN hydroxyzine HCl 25 mg tablet 25 mg PO BID PRN lorazepam 1 mg tablet 1 mg PO DAILY PRN sodium chloride [Lyons Saline] 0.65 % aerosol,spray 1 spray intranasal BID PRN ondansetron 4 mg tablet,disintegrating 4 mg PO Q8H propranolol 20 mg tablet 20 mg PO BID guaifenesin [Mucinex] 600 mg tablet extended release 12hr 600 mg PO BID PRN estradiol 1 mg tablet See Rx Instructions .ROUTE .COMPLEX Qty: 135 3RF Dose Instruction: TAKE 1 AND 1/2 TABLETS BY MOUTH EVERY NIGHT AT BEDTIME Rx Instructions: TAKE 1 AND 1/2 TABLETS BY MOUTH EVERY NIGHT AT BEDTIME estradiol 0.01 % (0.1 mg/gram) cream 1 g vaginal .twice weekly Qty: 42.5 3RF Rx Instructions: 1 gram Saturday Night, 1 gram Night acetaminophen [Tylenol Extra Strength] 500 mg tablet 500 mg PO Q6H PRN lamotrigine 150 mg tablet See Rx Instructions .ROUTE .COMPLEX Qty: 60 6RF Dose Instruction: TAKE ONE TABLET BY MOUTH TWICE DAILY Rx Instructions: TAKE ONE TABLET BY MOUTH TWICE DAILY levetiracetam 1,000 mg tablet See Rx Instructions .ROUTE .COMPLEX Qty: 90 3RF Dose Instruction: TAKE ONE AND ONE HALF TABLETS BY MOUTH TWICE DAILY Rx Instructions: TAKE ONE AND ONE HALF TABLETS BY MOUTH TWICE DAILY divalproex 500 mg tablet extended release 24 hr 500 mg PO TID Qty: 90 0RF Rx Instructions: MUST SEE PROVIDER FOR FURTHER REFILLS Discharge Orders: Discharge ED (Routine); Ordered 03/13/25 Ordered By: Chad Lin Referrals: Javon Mondragon MD [Primary Care Provider] - Patient Instructions: Urinary Tract Infection in Women (ED), Seizures Activity Restrictions/Additional Instructions: Continue taking your medications and follow-up with neurology. Take cefdinir as prescribed for your urinary tract infection. Return with any new or worsening. Print Language: Armenian Coding Level of Care Code ED Nutritionist Public Health for [facility]
[2025-03-12 23:41] LABS: Bilirubin Urine Negative (Negative); Blood Urine Negative (Negative); Glucose Urine UA Negative (Normal); Ketones Urine Trace (Negative); Leukocyte Esterase Urine 1+ (Negative); Nitrate Urine Negative (Negative); Protein Urine Trace (Negative); Specific Gravity, Urine 1.024 (1.005-1.030); Urine Appearance Cloudy (CLEAR); Urine Color Yellow (Yellow)
[2025-03-12 23:46] LABS: Add Urine Microscopic? YES; Bacteria Urine 3+ /hpf; Hyaline Casts Urine 0.81 /lpf; RBC Urine 0-2 /hpf (0-2)
[2025-03-12 23:48] LABS: Add Urine Culture? Yes
[2025-03-13] MEDS: cefdinir 300 MG CAPSULE PO (00:33)
== END 2025-03-13 00:34 | disposition home or self-care (01) ==
PROVIDERS: Emergency Provider Physician Assistant; PCP Family Medicine
DX: G40.109 Localization-related (focal) (partial) symptomatic epilepsy and epileptic syndromes with simple partial seizures, not intractable, without status epilepticus (principal); N30.00 Acute cystitis without hematuria; Z79.84 Long term (current) use of oral hypoglycemic drugs; I10 Essential (primary) hypertension
CPT/HCPCS: 36415; 70450; 80053; 80164; 81001; 85025; 87086; 99284; J9999

== ENCOUNTER → 2025-03-29 15:21 | Outpatient (BNVA) | payer MEDICARE, MEDICAID, SELFPAY | PROVIDERS: PCP Family Medicine; Visit Provider Psychiatry & Neurology Neurology | DX: G40.219 Localization-related (focal) (partial) symptomatic epilepsy and epileptic syndromes with complex partial seizures, intractable, without status epilepticus (principal); G40.909 Epilepsy, unspecified, not intractable, without status epilepticus | CPT/HCPCS: 99212 ==

== ENCOUNTER 2025-05-17 08:35 | Outpatient (CLI) | payer MEDICARE, MEDICAID, SELFPAY ==
[2025-05-17 10:02] LABS: Valproic Acid Level 65.4 ug/mL (50-100)
== END 2025-05-17 08:36 | disposition home or self-care (01) ==
PROVIDERS: PCP Family Medicine; Visit Provider Psychiatry & Neurology Neurology
DX: G40.219 Localization-related (focal) (partial) symptomatic epilepsy and epileptic syndromes with complex partial seizures, intractable, without status epilepticus (principal); G40.209 Localization-related (focal) (partial) symptomatic epilepsy and epileptic syndromes with complex partial seizures, not intractable, without status epilepticus; G40.909 Epilepsy, unspecified, not intractable, without status epilepticus
CPT/HCPCS: 36415; 80164; 80177

== ENCOUNTER → 2025-08-11 07:42 | Outpatient (BNVA) | payer MEDICARE, MEDICAID, SELFPAY | PROVIDERS: PCP Family Medicine; Visit Provider Podiatrist Foot & Ankle Surgery | DX: S93.401A Sprain of unspecified ligament of right ankle, initial encounter (principal); W18.2XXA Fall in (into) shower or empty bathtub, initial encounter | CPT/HCPCS: 99203 ==

== ENCOUNTER → 2025-08-30 14:35 | Outpatient (BNVA) | payer MEDICARE, MEDICAID, SELFPAY | PROVIDERS: PCP Family Medicine; Visit Provider Podiatrist Foot & Ankle Surgery | DX: S93.401A Sprain of unspecified ligament of right ankle, initial encounter (principal); X58.XXXA Exposure to other specified factors, initial encounter | CPT/HCPCS: 99213 ==

== ENCOUNTER 2025-09-09 10:06 | Outpatient (CLI) | payer MEDICARE, MEDICAID, SELFPAY ==
--- NOTE | 2025-09-09 | MM_ITS ---
WS: [id number] BILATERAL SCREENING DIGITAL TOMOSYNTHESIS MAMMOGRAM WITH CAD HISTORY: ANNUAL SCREENING COMPARISON: 09/03/2024, 09/26/2022 Bilateral CC and MLO views with tomosynthesis and synthetic mammography submitted. Computer aided detection analyzed. Breast composition: There are scattered areas of fibroglandular density. No suspicious masses, microcalcifications or architectural distortion. Benign calcifications in each breast. MM/MM scr BI tomosynthesis [id number] IMPRESSION: BI-RADS: 2 - Benign. FOLLOW UP: 1 Year Follow-up
== END 2025-09-09 10:07 | disposition home or self-care (01) ==
LOC: RAD 10:08
PROVIDERS: PCP Family Medicine; Visit Provider Family Medicine
DX: Z12.31 Encounter for screening mammogram for malignant neoplasm of breast (principal); R92.323 Mammographic fibroglandular density, bilateral breasts; R92.1 Mammographic calcification found on diagnostic imaging of breast
CPT/HCPCS: 77063; 77067

== ENCOUNTER → 2025-10-27 14:22 | Outpatient (BNVA) | payer MEDICARE, MEDICAID, SELFPAY | PROVIDERS: PCP Family Medicine; Visit Provider Podiatrist Foot & Ankle Surgery | DX: S93.401A Sprain of unspecified ligament of right ankle, initial encounter (principal); X58.XXXA Exposure to other specified factors, initial encounter | CPT/HCPCS: 99213 ==